=== PATIENT | female | born 1975 | race Caucasian/White ===

== ENCOUNTER → 2024-04-04 | Emergency (ER) | payer MEDICAID ==
[~2024-04-04] VITALS: Ht 152.4 cm; Wt 105.0 kg
[~2024-04-04] MED LIST: IBUP-1492 PO
[2024-04-04] MEDS: TraMADol HCL 50 MG TABLET PO ONE (13:30)
[2024-04-04 15:40] VITALS: TEMP 98.4
[2024-04-04 16:36] VITALS: BP 126/66; PULSE 80; RESP 16; O2SAT 98
[2024-04-04] MEDS: BACITRACIN 0.9 GM PACKET OINTMENT TP ONE (16:36)
== END | disposition still patient (30) ==
LOC: EMS 09:36
DX: S80.01XA Contusion of right knee, initial encounter (principal); S80.02XA Contusion of left knee, initial encounter; S10.81XA Abrasion of other specified part of neck, initial encounter; F17.210 Nicotine dependence, cigarettes, uncomplicated; Y04.8XXA Assault by other bodily force, initial encounter; Y93.89 Activity, other specified; Y92.89 Other specified places as the place of occurrence of the external cause; Y99.8 Other external cause status
CPT/HCPCS: 99283